=== PATIENT | female | born 1960 | race Caucasian/White ===

== ENCOUNTER 2019-10-02 14:26 | Outpatient (CLI) | payer BC ==
[~2019-10-02] VITALS: Ht 162 cm; Wt 59.0 kg
[~2019-10-02 14:26] MED LIST: CALC600T12 PO; KRIL500C PO; MULT-178 PO; VIT1CAPS44 PO; [UNRECOGNIZED DRUG - CODE] PO
== END 2019-10-02 14:58 ==
LOC: PREOP 14:26
PROVIDERS: ATTEND Surgery
DX: Z01.818 Encounter for other preprocedural examination (principal)

== ENCOUNTER 2019-10-08 08:58 | Day surgery (SDC) | payer BC ==
[~2019-10-08] VITALS: Ht 162 cm; Wt 59.0 kg
[2019-10-08] MEDS ORDERED: LACTATED RINGERS 1,000 ML IV ONE (09:04)
[2019-10-08] MEDS ORDERED: LACTATED RINGERS 1,000 ML IV STA (09:12)
[2019-10-08 09:30] VITALS: BP 103/71
[2019-10-08] MEDS ORDERED: PROPOFOL INJECTION 50 ML IV ONE (09:39)
[2019-10-08] MEDS ORDERED: MIDAZOLAM 2 MG/2 ML (VERSED) VIAL ONE (09:39)
--- NOTE | 2019-10-08 09:44 | Progress Note-Pre Operative ---
Pre-Operative Progress Note H&P Reviewed The H&P was reviewed, patient examined and no changes noted. Time Seen by Provider: 09:42 Date H&P Reviewed: Oct 08, 2019 Time H&P Reviewed: 09:43 Pre-Operative Diagnosis: Hx of colon polyps KIRAN HEADLEY DO Oct 08, 2019 09:44
[2019-10-08 10:20] VITALS: BP 84/50
--- NOTE | 2019-10-08 10:20 | Progress Note-Post Operative ---
Post-Operative Progess Note Surgeon (s)/Bookkeeping Assistant (s) Surgeon KIRAN HEADLEY DO Bookkeeping Assistant: none Pre-Operative Diagnosis Hx of colon polyps Post-Operative Diagnosis Internal and External Hemorrhoids Procedure & Operative Findings Date of Procedure 10/08/19 Procedure Performed/Findings colonoscopy Anesthesia Type IV sedation by MEDICAL CERTIFICATION SPECIALIST Estimated Blood Loss Estimated blood loss (mL): none Specimens/Packing Specimens Removed none KIRAN HEADLEY DO Oct 08, 2019 10:20
--- NOTE | 2019-10-08 10:22 | Endoscopy Discharge Instruct ---
Endo Procedure/Findings Findings 1.: Internal Hemorrhoids Discharge Instructions - Activity: You might feel a little sleepy until tomorrow. This is due to the me dicine you received to relax you. Until tomorrow, you should: NOT drive a car, operate machinery or power tools. NOT drink any alcoholic beverages. NOT make any important decisions or sign importortant papers. Do not return to work until tomorrow, unless otherwise instructed. Resume previous activities tomorrow. Diet: Start by taking liquids. If you tolerate liquids, advance to solid food. make appt for one week 1.: Colonscopy in 10 years Notify Physician - If you experience excessive bleeding, unusual abdominal pain, fever, or chest pain, contact your doctor immediately. KIRAN HEADLEY DO Oct 08, 2019 10:22
[2019-10-08 10:25] VITALS: BP 84/50
[2019-10-08 10:30] VITALS: BP_SYST 89; BP_SYST 91; BP_DIAS 52; BP_DIAS 54
[2019-10-08 11:00] VITALS: BP 94/61
[2019-10-08 11:08] VITALS: BP 94/61
--- NOTE | 2019-10-08 12:45 | Anesthesia-General Post-Op ---
MAC Patient Condition Mental Status/LOC: Same as Preop Cardiovascular: Satisfactory Nausea/Vomiting: Absent Respiratory: Satisfactory Pain: Controlled Complications: Absent Post Op Complications Complications None Follow Up Care/Instructions Patient Instructions None needed. Anesthesiology Discharge Order Discharge Order Patient is doing well, no complaints, stable vital signs, no apparent adverse anesthesia problems. No complications reported per nursing. JOSE KELLEY CRNA Oct 08, 2019 12:44
--- NOTE | 2019-10-08 22:28 | OPERATIVE REPORT ---
DATE OF SERVICE: PREOPERATIVE DIAGNOSES: History of colon polyps. POSTOPERATIVE DIAGNOSES: Internal and external hemorrhoids. PROCEDURE: Colonoscopy. SURGEON: Cedrick Gardner DO. INSURANCE ADJUSTER: None. ANESTHESIA: IV sedation by ASSISTANT PROFESSOR OF DRAMA. SPECIMENS: None. BLOOD LOSS: None. FLUIDS: Per anesthesia. POSTOPERATIVE CONDITION: Stable. INDICATION FOR PROCEDURE: The patient is a 59-year-old female who has had previous colonoscopy, the last one was over 10 years ago. She states she had polyps removed at that time. FINDINGS: The patient had some internal and some small external hemorrhoids. No other obvious pathology. PROCEDURE NOTE: After informed consent was obtained, the patient was brought to the endoscopy suite and placed in the left lateral decubitus position. She was administered IV sedation by the ASSISTANT PROFESSOR OF DRAMA who then monitored her vitals the entire time, heart rate, blood pressure and pulse ox and the scope was inserted, pushed all the way about 140 cm, able to get to the cecum, took a picture of appendiceal orifice, noted the ileocecal valve and then slowly withdrew the scope insufflating to look circumferentially at the nixon looking the cecum, up the ascending colon to the hepatic flexure, down the transverse colon, the splenic flexure, into the descending colon down to the sigmoid and finally into the rectum, retroflexed in the rectal vault, saw some minimal internal hemorrhoids, took a picture of this and then removed the scope and took a picture of external hemorrhoids. The patient tolerated the procedure. She was recovered in endoscopy suite. Job ID: [id number] DocumentID: [id number] Dictated Date: 10/08/2019 14:17:43 Forest Fire Prevention Manager Date: 10/08/2019 22:28:17 Dictated By: CEDRICK GARDNER DO
== END 2019-10-08 11:15 | disposition home or self-care (01) ==
LOC: ENDO 08:58
PROVIDERS: ATTEND Surgery
DX: Z12.11 Encounter for screening for malignant neoplasm of colon (principal); K64.8 Other hemorrhoids; K64.4 Residual hemorrhoidal skin tags; Z86.010 Personal history of colon polyps; Z87.891 Personal history of nicotine dependence

== ENCOUNTER → 2022-01-15 | Outpatient (CLI) | payer BC ==
[~2022-01-15] MED LIST changes: -CALC600T12 PO; +CALC600T91 PO; +CYAN2000 PO; -[UNRECOGNIZED DRUG - CODE] PO
--- NOTE | 2022-01-15 15:01 | Diagnostic Imaging Report ---
CLINICAL INDICATION: Patient is having trouble finding the right words. No head trauma. EXAM: MRI of the brain performed without IV contrast. Sequences include sagittal T1, axial T2, axial FLAIR, axial gradient echo, DWI, ADC map, and axial T1. COMPARISON: None. FINDINGS: There is no evidence of acute cerebral infarct, intracranial hemorrhage, or gross mass effect. The brain parenchymal volume appears appropriate for patient's age. There are a few small areas of high T2 signal white matter changes involving both cerebral hemispheres likely representing mild chronic small vessel ischemic disease. There is normal wisdom-white matter distinction. There is no significant midline shift or herniation. The [place] vascular structures show no gross abnormality as visualized. The pituitary gland, sella, and suprasellar regions are unremarkable as visualized. There is no evidence of hydrocephalus. The basal cisterns are unremarkable. The skull, extracranial soft tissue, and orbits are unremarkable. The paranasal sinuses are unremarkable. Temporal bones show no significant abnormality. IMPRESSION: Mild age-related brain parenchymal changes with no evidence of acute intracranial process. Dictated by: Dictated on workstation # [id number]
== END ==
LOC: RAD 14:00
PROVIDERS: ATTEND Family Medicine
DX: G31.1 Senile degeneration of brain, not elsewhere classified (principal)
CPT/HCPCS: 70551

== ENCOUNTER → 2022-01-18 | Outpatient (CLI) | payer BC ==
--- NOTE | 2022-01-18 14:19 | Diagnostic Imaging Report ---
INDICATION: Bilateral thumb pain. TIME OF EXAM: 10:39 a.m. FINDINGS: Multiple views of bilateral thumbs were obtained. Right hand and thumb demonstrate severe triscaphe joint degenerative changes with complete loss of the joint space and sclerosis. MCP and interphalangeal joints are unremarkable. No fractures are seen. The left hand and thumb show triscaphe joint degenerative changes as well. MCP and interphalangeal joints are maintained. No fractures are seen. Soft tissues are unremarkable. 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 No acute bony abnormality is detected. Dictated by: Dictated on workstation # [id number]
== END ==
LOC: RAD FS 10:20
PROVIDERS: ATTEND Nurse Practitioner
DX: M18.0 Bilateral primary osteoarthritis of first carpometacarpal joints (principal)

== ENCOUNTER 2022-11-11 08:27 | Outpatient (RCR) | payer BC | END 2022-11-16 | disposition home or self-care (01) | PROVIDERS: ATTEND Nurse Practitioner Family | DX: G31.84 Mild cognitive impairment of uncertain or unknown etiology (principal) ==

== ENCOUNTER 2022-12-02 08:29 | Outpatient (RCR) | payer BC | END 2022-12-02 15:05 | disposition home or self-care (01) | PROVIDERS: ATTEND Nurse Practitioner Family | DX: G31.84 Mild cognitive impairment of uncertain or unknown etiology (principal) ==